=== PATIENT | female | born 1955 | race Caucasian/White ===

== ENCOUNTER 2016-05-28 09:14 | Emergency (ER) | payer OTHER ==
[2016-05-28 09:34] LABS: BASOPHIL 0.1 % (0-2); EOSINOPHIL 0.1 % (0-5); HCT 36.4 % (37.0-47.0); HGB 12.8 g/dl (12.5-16.0); LYMPHOCYTE 7.4 % (15-48); MCH 30.5 pg (25.0-31.0); MCHC 35.2 g/dL (32.0-36.0); MCV 86.7 fL (78.0-100.0); MONOCYTE 8.1 % (0-12); MPV 9.4 fL (6.0-9.5); NEUTROPHIL 84.3 % (41-80); PLT 238 K/uL (150-400); RDW 13.6 % (11.5-14.0); WBC 6.9 K/uL (4.0-10.5)
[2016-05-28 09:43] LABS: INR 1.07 (0.9-1.2); PROTHROMBIN TIME 13.5 SECONDS (11.7-14.0)
[2016-05-28 09:51] LABS: ACETAMINOPHEN (TYLENOL) < 5.0 ug/mL (10.0-30.0); ALCOHOL (ETOH) MEDICAL NONE DETECTED; SALICYLATE < 6 ug/mL (0-300)
[2016-05-28 09:52] LABS: ALBUMIN 4.2 g/dL (3.5-5.0); BILIRUBIN - TOTAL 0.6 mg/dL (0.1-1.0); CREATININE 0.6 mg/dL (0.5-1.0); GLOBULIN (CALCULATION) 1.9 g/dL (2.2-4.2); POTASSIUM 3.4 mmol/L (3.5-5.1); TOTAL PROTEIN 6.1 g/dL (6.4-8.3)
[2016-05-28 10:07] LABS: BILIRUBIN NEGATIVE (NEGATIVE); BLOOD NEGATIVE Ery/uL (NEGATIVE); CLARITY CLEAR (CLEAR); COLOR YELLOW (YELLOW); GLUCOSE (U) NORMAL (NORMAL); KETONE (U) 2+ (MODERATE) mg/dL (NEGATIVE); LEUKOCYTES NEGATIVE Leu/uL (NEGATIVE); NITRITE NEGATIVE (NEGATIVE); PROTEIN NEGATIVE (NEGATIVE); SPECIFIC GRAVITY 1.015 (1.001-1.030); UROBILINOGEN 0.2 mg/dL (0.2-1.0)
[2016-05-28 10:14] LABS: AMPHETAMINES POSITIVE (NEGATIVE); BARBITURATES NEGATIVE (NEGATIVE); BENZODIAZEPINES NEGATIVE (NEGATIVE); COCAINE NEGATIVE (NEGATIVE); MARIJUANA (THC) NEGATIVE (NEGATIVE); METHADONE POSITIVE (NEGATIVE); TRICYCLIC ANTIDEPRESSANT NEGATIVE (NEGATIVE)
== END 2016-05-28 17:38 | disposition other institution (70) ==
LOC: FER 09:14
PROVIDERS: Emergency Medicine
DX: F23 Brief psychotic disorder (principal); F41.9 Anxiety disorder, unspecified; F32.9 Major depressive disorder, single episode, unspecified; I10 Essential (primary) hypertension; E11.9 Type 2 diabetes mellitus without complications; G35 Multiple sclerosis; Z88.5 Allergy status to narcotic agent; Z79.899 Other long term (current) drug therapy
CPT/HCPCS: 36415; 70450; 71010; 73560; 80053; 80305; 81003; 85025; 85610; 93005; G0480; J2060

== ENCOUNTER 2020-05-04 16:37 | Emergency (ER) | payer MEDICARE ==
[~2020-05-04 16:37] MED LIST: 3IN1 COMMODE XX; ALLOPURINOL100 MG PO; AMANTADINE100 MG PO; AMBIEN10 MG PO; BACTRIM DS TAB1 EACH PO; BACTROBAN NASAL1 GM; BIOTIN10000 MCG PO; CALCIUM + D SO1 EACH PO; COLACE100 MG PO; DULCOLAX5 MG PO; FLEXERIL10 MG PO; LASIX40 MG PO; LINZESS145 MCG PO; NEURONTIN400 MG PO; OMEPRAZOLE20 MG PO; OXYCODONE-ACET1 EAC1 PO; PROLIA60 MG/1 ML IM; RIZATRIPTAN10 MG PO; TECFIDERA240 MG PO; TRAZODONE 150M150 MG PO; ULTRA-LIGHT RO1 EACH XX; WELLBUTRIN100 MG PO; WHEELCHAIR
== END 2020-05-04 17:30 | disposition home or self-care (01) ==
LOC: FER 16:37
DX: L76.22 Postprocedural hemorrhage of skin and subcutaneous tissue following other procedure (principal); Z90.13 Acquired absence of bilateral breasts and nipples; Z85.3 Personal history of malignant neoplasm of breast; Y83.6 Removal of other organ (partial) (total) as the cause of abnormal reaction of the patient, or of later complication, without mention of misadventure at the time of the procedure
CPT/HCPCS: 99283

== ENCOUNTER 2021-02-12 09:18 | Day surgery (SDC) | payer MEDICARE ==
[~2021-02-12] VITALS: Ht 165 cm; Wt 68.0 kg
[~2021-02-12 09:18] MED LIST changes: +ALEVE220 M1 PO; +ESTRACE1 MG PO; +MUPIROCIN 2%22 GM; +PROBIOTIC1 EAC3 PO; +TIZANIDINE HCL2 MG PO
--- NOTE | 2021-02-12 16:14 | NUR ---
PT TO D/C HOME WITH SPOUSE. NO NEEDS.
[2021-02-13 07:25] LABS: BASOPHIL 0.5 % (0-2); EOSINOPHIL 2.3 % (0-5); HCT 31.8 % (37.0-47.0); HGB 10.2 g/dl (12.5-16.0); LYMPHOCYTE 18.9 % (15-48); MCHC 32.1 g/dL (32.0-36.0); MCV 96.7 fL (78.0-100.0); MONOCYTE 9.1 % (0-12); MPV 10.2 fL (6.0-9.5); NRBC 0; PLT 204 K/uL (150-400); RBC 3.29 M/uL (4.20-5.40); RDW 13.4 % (11.5-14.0); WBC 5.7 K/uL (4.0-10.5)
[2021-02-13 08:18] LABS: BILIRUBIN - TOTAL 0.3 mg/dL (0.2-1.0); CREATININE 0.7 mg/dL (0.51-0.95); GLOBULIN (CALCULATION) 2.4 g/dL; TOTAL PROTEIN 5.4 g/dL (6.4-8.2)
[2021-02-13] MEDS ORDERED: ASPIRIN325 MG PO (09:25)
[2021-02-13] MEDS ORDERED: OXYCODONE-ACET1 EAC1 PO (09:26)
--- NOTE | 2021-02-13 12:05 | NUR ---
02/13 Ms. Payne lives at home with her spouse. She has 4 children and 5 grandchildren. She has a quad cane. - No discharge planning needs per Daniel Membreno.
== END 2021-02-13 12:40 | disposition home or self-care (01) ==
LOC: FAS 09:18 → FMS 14:48 → FAS 15:40 → FMS 15:41 → FAS 15:41 → FMS 02-13 12:40 → FAS 02-13 12:40
PROVIDERS: Nurse Practitioner
DX: M19.011 Primary osteoarthritis, right shoulder (principal); M75.101 Unspecified rotator cuff tear or rupture of right shoulder, not specified as traumatic; G56.01 Carpal tunnel syndrome, right upper limb; G89.18 Other acute postprocedural pain; G35 Multiple sclerosis; F41.9 Anxiety disorder, unspecified; F32.A Depression, unspecified; M81.0 Age-related osteoporosis without current pathological fracture; Z98.84 Bariatric surgery status; Z88.5 Allergy status to narcotic agent; Z88.1 Allergy status to other antibiotic agents; Z79.899 Other long term (current) drug therapy
CPT/HCPCS: 36415; 73020; 80053; 85025; 86850; 86900; 86901; 94010; 94760; 94762; 97162; 97166; 97530-GP; 97535; C1713; C1776; G0378; J0171; J0697; J1100; J1170; J1200; J1885; J2250; J2370; J2405; J2704; J2795; J3010; J7120